=== PATIENT | male | born 1960 | race Caucasian/White ===

== ENCOUNTER 2018-08-02 19:27 | Observation (INO) | payer SELFPAY ==
[2018-08-02 20:29] VITALS: BMI 26.6
[2018-08-02] MEDS ORDERED: Acetaminophen 650 MG Suppository PR PRN (20:29)
[2018-08-02] MEDS ORDERED: Ondansetron ODT 4 MG TAB PO PRN (20:29)
[2018-08-02] MEDS ORDERED: Bisacodyl 5 MG TAB PO PRN (20:29)
[2018-08-02] MEDS ORDERED: Calcium Carbonate 500 MG ChewTAB PO PRN (20:29)
[2018-08-02] MEDS ORDERED: Acetaminophen 325 MG TAB PO PRN (20:29)
[2018-08-02] MEDS ORDERED: Ondansetron PF 4 MG/2 ML Vial IVP PRN (20:29)
[2018-08-02] MEDS ORDERED: Senokot S 8.6-50 MG TAB PO PRN (20:29)
[2018-08-02] MEDS ORDERED: Phytonadione 10 MG/ML AMP PO SCH (20:45)
[2018-08-02 21:04] LABS: PTT 82.1 SEC (22.9-36.1)
[2018-08-02 21:12] LABS: INR-International Normal Ratio 12.1
[2018-08-02 21:19] LABS: ALT (SGPT) 16 U/L (8-55); AST (SGOT) 39 U/L (5-34); Albumin 4.1 g/dL (3.5-5.0); Alkaline Phosphatase 60 U/L (40-150); Anion Gap 20 mmol/L (10-20); BUN (Urea Nitrogen) 7 mg/dL (8.4-25.7); Bilirubin, Total 0.9 mg/dL (0.2-1.2); Calc. Creatinine Clearance 170 mL/min (70-130); Calcium 9.5 mg/dL (7.8-10.44); Carbon Dioxide 20 mmol/L (22-29); Chloride 99 mmol/L (98-107); Estimated GFR-MDRD Greater than 90; Globulin 4.1 g/dL (2.4-3.5); Glucose 110 mg/dL (70-105); Protein, Total 8.2 g/dL (6.0-8.3); Sodium 135 mmol/L (136-145)
[2018-08-02 21:33] LABS: #Basophils 0.1 thou/uL (0.0-0.2); #Lymphocytes 1.7 thou/uL (1.20-3.40); #Monocytes 1.1 thou/uL (0.11-0.59); #Neutrophils 10.4 thou/uL (1.40-6.50); %Basophils 0.4 % (0.0-1.0); %Eosinophils 0.2 % (0.0-10.0); %Monocytes 8.3 % (0.0-10.0); %Neutrophils 78.2 % (42.0-75.0); Hemoglobin 14.3 g/dL (14.0-18.0); MDiff Complete? YES; Macrocytosis SLIGHT = 6-15 cells (100X) (0-5/hpf); Mean Corpuscular HGB CONC 34.5 g/dL (32.0-36.0); Mean Corpuscular Hemoglobin 36.8 pg (27.0-31.0); Mean Platelet Volume 7.3 fL (7.4-10.4); Platelet Count 157 thou/uL (130-400); RBC Distribution Width 11.1 % (11.5-14.5); Red Blood Cell (RBC) Count 3.89 mill/uL (4.70-6.10); White Blood Cell (WBC) Count 13.3 thou/uL (4.8-10.8)
[2018-08-02] MEDS: Metoprolol Tartrate 50 MG TAB PO SCH (21:45)
[2018-08-03] MEDS ORDERED: Lorazepam 2 MG/ML VIAL SLOW IVP PRN (00:21)
[2018-08-03] MEDS ORDERED: Tranexamic Acid 1,000 MG/10 ML VIAL ONE (01:01)
[2018-08-03] MEDS ORDERED: Oxymetazoline HCl 0.05% ( 15 ML ) ONE (01:01)
[2018-08-03 05:09] LABS: #Lymphocytes 2.2 thou/uL (1.20-3.40); #Monocytes 1.1 thou/uL (0.11-0.59); #Neutrophils 7.5 thou/uL (1.40-6.50); %Basophils 0.4 % (0.0-1.0); %Eosinophils 0.4 % (0.0-10.0); %Lymphocytes 19.9 % (21.0-51.0); %Neutrophils 69.3 % (42.0-75.0); Hemoglobin 13.1 g/dL (14.0-18.0); Mean Corpuscular HGB CONC 34.1 g/dL (32.0-36.0); Mean Corpuscular Hemoglobin 36.4 pg (27.0-31.0); Mean Platelet Volume 7.6 fL (7.4-10.4); Platelet Count 145 thou/uL (130-400); Red Blood Cell (RBC) Count 3.61 mill/uL (4.70-6.10); White Blood Cell (WBC) Count 10.8 thou/uL (4.8-10.8)
[2018-08-03 05:17] LABS: Prothrombin Time 44.8 SEC (12.0-14.7)
[2018-08-03 05:20] LABS: INR-International Normal Ratio 4.8
[2018-08-03 05:29] LABS: Anion Gap 16 mmol/L (10-20); BUN (Urea Nitrogen) 8 mg/dL (8.4-25.7); Calc. Creatinine Clearance 167 mL/min (70-130); Calcium 9.6 mg/dL (7.8-10.44); Carbon Dioxide 27 mmol/L (22-29); Chloride 98 mmol/L (98-107); Estimated GFR-MDRD Greater than 90; Glucose 98 mg/dL (70-105); Potassium 3.9 mmol/L (3.5-5.1); Sodium 137 mmol/L (136-145)
--- NOTE | 2018-08-03 05:48 | HP ---
CHIEF COMPLAINT: Nosebleed. HISTORY OF PRESENT ILLNESS: This is a 58-year-old male with past medical history of AFib and hypertension, presenting with left nasal bleed which has been ongoing for the past 2 days. The patient was lying in bed sleeping when he saw that there was blood trickling from his left naris. Patient stated that he did not do anything about it because he thought it was going to resolve spontaneously. As couple of days went by, patient stated that his bleeding was not subsiding. Therefore, patient went to the urgent care center to be evaluated. At the urgent care center, patient was found to have supratherapeutic INR in levels of 8 and a Rhino Rocket was placed in the patient's left naris. Patient was then transferred to our hospital facility to be further evaluated. At this time, patient admits to intermittent nasal bleed, tremors, otherwise patient denies any fever, chills, shortness of breath, palpitations, chest pain, abdominal pain, hematuria, hematochezia, diarrhea, constipation, dysuria, or increased frequency with urination. REVIEW OF SYSTEMS: Positive for tremors and nasal bleeds. Otherwise, as documented in the HPI. All other systems have been reviewed and are negative. PAST MEDICAL HISTORY: 1. Hypertension. 2. Alcohol abuser. 3. Atrial fibrillation. FAMILY HISTORY: Reviewed and noncontributory to this visit. PAST SURGICAL HISTORY: No previous surgical history noted. ALLERGIES: NO KNOWN DRUG ALLERGIES. SOCIAL HISTORY: Patient drinks alcohol about 10 beers a day. Denies illicit drugs. Denies any smoking history. CURRENT MEDICATIONS: The patient takes: 1. Metoprolol 50 mg. 2. Warfarin 2 mg. PHYSICAL EXAMINATION: GENERAL: Patient is alert and oriented x3, not in acute distress. Patient is speaking to me in full sentences. HEENT: Normocephalic, atraumatic. Pupils are equally round and reactive to light. Extraocular movements are intact. No scleral icterus. No conjunctival pallor. Mucous membrane is moist. Patient has blood trickling from his left naris. Patient has a Rhino Rocket in place. NECK: Trachea is midline. Full range of motion. No JVD. LUNGS: Clear to auscultation bilaterally. No wheezing, no rales, no rhonchi appreciated. CARDIAC: Positive S1 and S2. Irregularly irregular. ABDOMEN: Soft, nontender, and nondistended. Positive bowel sounds in all quadrants. No peritoneal signs. No palpable masses. EXTREMITIES: Patient has 5/5 upper extremity strength and 5/5 lower extremity strength. Patient does have some tremors that is noted at the upper extremity. Patient has good pulses bilaterally of the upper and lower extremities. NEUROLOGIC: Cranial nerves 2 through 12 grossly intact. No neurologic deficits noted. PSYCHIATRIC: Patient has normal affect. LABORATORY DATA: WBC 13.3, hemoglobin is 14.3, hematocrit is 41.5, MCV is 107.0, RDW 7.1, and platelet count is 157. PT is 92.0, INR is 12.1, and PTT is 82.1. Sodium is 135, potassium is 4.0, chloride is 99, carbon dioxide is 20, anion gap of 27, BUN is 7, creatinine is 0.61, glucose is 110, AST is 39, and ALT is 16. ASSESSMENT AND PLAN: 1. This is a 58-year-old male presenting with epistaxis. At this point, patient is still bleeding. We have called the ED physicians to come and help us with the bleed. The ED physicians are going to place a new Rhino Rocket and we will reevaluate the patient. ENT has been consulted. We will follow up with their recommendations. Patient has been given FFP and p.o. vitamin K. We will get morning labs and we will follow up the morning labs. Patient has been started on Ancef. 2. History of atrial fibrillation. Patient is on warfarin 2 mg and the dose of warfarin seemed to be very high because the patient's INR is at supratherapeutic levels at 12. At this point, we will hold the patient's warfarin dose and we will monitor the patient closely. 3. Supratherapeutic INR. We will hold the patient's warfarin and we will adjust patient's medication dose. We will monitor patient's morning labs. 4. History of hypertension. We will monitor the patient's blood pressure closely and we will keep patient blood pressure medication p.r.n. to help the patient's blood pressures. 5. DVT and GI prophylaxis. Job ID: [id number]
[2018-08-03] MEDS: Metoprolol Tartrate 50 MG TAB PO SCH (08:36)
[2018-08-03] MEDS ORDERED: Folic Acid 1 MG TAB PO SCH (09:00)
[2018-08-03] MEDS ORDERED: Multivit, Therapeutic 1 TAB PO SCH (09:00)
[2018-08-03 15:40] VITALS: BP 131/82; TEMP 98.3
[2018-08-03 15:44] LABS: INR-International Normal Ratio 2.8; PTT 45.9 SEC (22.9-36.1); Prothrombin Time 29.7 SEC (12.0-14.7)
--- NOTE | 2018-08-03 16:15 | PDOC.EVN ---
Event Note - Event Note Event Note: Reviewed the case with Danna. Discussed with Dr. Restrepo. Patient is doing well and eager to go home. Packing in place with no evidence of active bleeding. Still in afib, rate controlled. Plan to discharge. Recommended he hold the Coumadin. His CHADS-Vasc score is 1, so he is considered low to mod risk due to afib. He will follow up with Dr. Restrepo in four days to get the packing out. At that time he can assess the possibility of him going back on the anticoagulation. If he feels it is safe, he should follow up with Dr. Mendez to discuss Xa inhibitors. Discussed the risks and benefits of each.
--- NOTE | 2018-08-03 17:52 | DIS ---
DATE OF ADMISSION: 08/02/2018 DATE OF DISCHARGE: 08/03/2018 CONSULTING PHYSICIAN: Dr. Restrepo of ENT. DISCHARGE DIAGNOSES: 1. Epistaxis. 2. Supratherapeutic INR. 3. Atrial fibrillation. 4. Alcohol abuse. HOSPITAL COURSE: This is a 58-year-old man with a background history of atrial fibrillation and hypertension, who presented to [facility] ER in [place] with uncontrollable bleeding from the left nostril. The patient states he was woken from his sleep with blood trickling from his left naris. He states this started spontaneously and denies having any trauma or injury. He has not had any bleed like this in the past. He states he has continued taking his Coumadin as prescribed. An INR done at the urgent care center was raised. Upon presentation here, he had an initial INR of 12, which improved to 4.8. The patient remained off Coumadin. He was admitted for further management. He did have tremors associated with alcohol withdrawal. The patient reports he normally drinks up to 10 beers a day. It has been two days since the last time he had any alcohol. Early this morning, the patient did experience tremors, which have settled quickly with Ativan. He is not known to have any history of withdrawal seizures. The patient has been doing well since and without any complaints. He did have a Rhino Rocket in place upon arrival. He has had no further bleeding. He denies having any headaches or dizziness. He denies having any chest pain, palpitations, or shortness of breath. He denies having any nausea or vomiting. No abdominal pain. He reports having regular stools and denies having any urinary symptoms. He was experiencing sweats and tremors intermittently, but this has settled since Ativan. At this time, the patient has been deemed stable for discharge home. He had significant improvement in his INR to 2.8 following fresh frozen plasma and oral vitamin K. The patient was seen by Dr. Restrepo, who advised the nasal pack remain in place for at least four days, at which point, he will follow up and assess if any further interventions required such as cauterization. The patient is to follow up with his primary care physician this week to discuss resumption of Coumadin after four days versus alternative anticoagulation such as factor Xa inhibitors. REVIEW OF SYSTEMS: All other review of systems are negative. PHYSICAL EXAMINATION: GENERAL: The patient is resting comfortably and in no acute distress. No active tremors at this present time and no diaphoresis. SKIN: Normal warm and dry. VITAL SIGNS: Temperature 98.3, pulse 96, respirations 12, O2 saturation 97% on room air, and blood pressure 131/82. HEENT: Normocephalic and atraumatic. Pupils are equal, round, reactive to light. Sclerae are anicteric. Oropharynx is clear of any blood dripping in the posterior pharynx. Rhino Rocket in place, located in the left naris. No active bleeding. NECK: Supple without lymphadenopathy. LUNGS: Clear to auscultation bilaterally. Cardiac: Irregularly irregular rhythm. ABDOMEN: Soft, nontender, nondistended. Normoactive bowel sounds present. EXTREMITIES: No clubbing, cyanosis, or edema. NEUROLOGIC: Alert and oriented x3. SKIN: Without rash or jaundice. LABORATORY DATA: White blood count 10.8, hemoglobin 13.1, hematocrit 38.6, and platelets 145. INR 4.8, improved from 12.1. Repeat INR later in the day was normal at 2.8. Electrolytes unremarkable. Renal function normal. Liver functions are notable for an AST of 39, otherwise unremarkable. IMAGING DATA: None. PROCEDURES: None. DISCHARGE MEDICATIONS: The patient advised to discontinue Coumadin for four days while the nasal pack remains in place. The patient otherwise advised to resume metoprolol. Also advised to continue multivitamin and thiamine. CONDITION AT DISCHARGE: Stable. ACTIVITY: As tolerated. DIET: Regular diet. FOLLOWUP: 1. The patient will follow up with Dr. Restrepo and is to have the pack in place for four days. 2. The patient will follow up with primary care physician to discuss recommendations regarding anticoagulation. He will remain off Coumadin until seen by Dr. Restrepo. DISPOSITION: Discharged home on August 03, 2018. The patient was discussed with Dr. Sawant, who agrees with the plan of care as described above. Job ID: [id number]
--- NOTE | 2018-08-03 17:55 | CON ---
DATE OF CONSULTATION: 08/03/2018 CONSULTING PHYSICIAN: Robert Sawant MD REASON FOR CONSULTATION: Epistaxis. HISTORY OF PRESENT ILLNESS: Mr. Rao is a 58-year-old male who presented with a 3-day history of left-sided epistaxis, mostly coming out in front of his nose, it was progressively worsened to the point he had presented to urgent care. At the urgent care, he had a packing placed in and was noted to have very elevated INR. He has been on Coumadin for about a year because of atrial fibrillation, but has now been monitoring it well. He also has a history of hypertension which at this point in time appears to under good control. He denies any history of any injuries because not had any previous history of nose bleeds and has not had any infections. The bleeding persisted in spite of the initial packing, he was given fresh frozen plasma and vitamin K, and a new pack was placed, and the bleeding appears to be under control at this time. I was asked to evaluate for further intervention if necessary. Please see his admission history and physical for further details of his past medical history and review of systems, which were reviewed on this date. PHYSICAL EXAMINATION: GENERAL: Well-developed, well-nourished white male, in mild distress. HEENT: Head is normocephalic, atraumatic. Eyes; pupils are equal, round, and reactive to light. Extraocular movements are intact. Ears, tympanic membranes has a balloon pack in the left naris with no active bleeding noted. Right naris appears to be clear. Oral cavity, oropharynx exudate erythema. Does not feel any bleeding down the back of his throat. NECK: Nonsignificant. No adenopathy or mass. Thyroid palpably normal. LUNGS: Clear to auscultation. HEART: Rate is irregular. No murmurs noted. IMPRESSION: Left anterior epistaxis, seems to be controlled with a pack and reversal of his anticoagulants. RECOMMENDATIONS: To leave the pack in 4 days and if possible, leave him off the anticoagulant and remove the pack in 4 days and see if anything further needs to be done. If he starts bleeding around the pack, we will have to reevaluate. Job ID: [id number]
[2018-08-03] MEDS ORDERED: Famotidine 20 MG TAB PO SCH (21:00)
== END 2018-08-03 17:24 | disposition home or self-care (01) ==
LOC: 2SW 20:00
PROVIDERS: ADMIT Internal Medicine; ATTEND Internal Medicine
DX: R04.0 Epistaxis (principal); R79.1 Abnormal coagulation profile; I48.91 Unspecified atrial fibrillation; I10 Essential (primary) hypertension; F10.10 Alcohol abuse, uncomplicated; Z79.01 Long term (current) use of anticoagulants; Z79.899 Other long term (current) drug therapy
CPT/HCPCS: 36415; 36430; 80048; 80053; 85025; 85610; 85730; 86850; 86900; 86901; 96365; 96376; G0378; J0690; J2060; J3430; P9059